=== PATIENT | female | born 1995 | race Caucasian/White ===

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

== ENCOUNTER 2017-03-15 23:12 | Emergency (ER) | payer MEDICAID ==
[~2017-03-15 23:12] MED LIST changes: -IBUP-232 PO; -SENN1TAB PO
--- NOTE | 2017-03-16 00:14 | PD ---
HPI Chief Complaint Contractions Date Seen: Mar 15, 2017 Time Seen: 23:50 Travel History International Travel<30 Days: No Contact w/Intl Traveler<30Days: No Known Affected Area: No History of Present Illness HPI 21-year-old 3 para 1 at 38-6/7 weeks' gestation who comes today with possible contractions. She denies any bleeding, leakage of fluid or decreased movement. Para: 1 : 3 Miscarriage: 1 History Past Medical History Narrative Medical Hypothyroidism Obstetric History Obstetric History 1 term vaginal delivery Uncomplicated course Past Surgical History Narrative Surgical None Family History Family History: Negative Social History Alcohol Use: No Tobacco Use: No Substance Abuse: No Allergies-Medications (Allergen,Severity, Reaction): Coded Allergies: No Known Allergies (Unverified , 01/28/14) Home Meds Reported Medications Norethindrone (Contraceptive) (Orth[facility]) Tab1 Tab PO DAILY #1 PACK START 5 WEEKS POST 01/31/14 Ibuprofen 800 Mg [id number] Mg PO Q8 PRN (PAIN) #30 TAB 01/31/14 Docusate Sodium (Colace)100 Mg [id number] Mg PO BID #30 CAP 01/31/14 Vit W/ Ferrous Fumara ( Vitamin 27-0.8 mg)1 Tab Tab 01/28/14 Review of Systems Except as stated in HPI: all other systems reviewed are Neg Physical Exam Narrative GENERAL: Well-nourished, well-developed patient. SKIN: Warm and dry. HEAD: Normocephalic and atraumatic. EYES: No scleral icterus. No injection or drainage. ENT: No nasal drainage noted. Mucous membranes pink. Airway patent. NECK: Supple, trachea midline. No JVD. CARDIOVASCULAR: Regular rate and rhythm without murmurs, gallops, or rubs. RESPIRATORY: Breath sounds equal bilaterally. No accessory muscle use. ABDOMEN/GI: Abdomen soft, non-tender, bowel sounds present, no rebound, no guarding Gravid to [-] weeks size Fundal Height: [-] GENITOURINARY: External Genitalia: intact and normal in appearance BUS glands: [-] Cervix: [-] Dilatation: [2-] Effacement: [-80] Station: [-] Presentation: [-] Membranes: [intact] Uterine Contractions: [-Rare] FHT's: Category: [1-] Baseline: [-] Reactive: [-Yes] Variability: [-] Decels: [-] EXTREMITIES: No cyanosis or edema. BACK: Nontender without obvious deformity. No CVA tenderness. NEUROLOGICAL: Awake and alert. Motor and sensory grossly within normal limits. Five out of 5 muscle strength in all muscle groups. Normal speech. Data Data Vital Signs Reviewed: Yes MDM Medical Record Reviewed: Yes Narrative Course / MDM Assessment: 38-6/7 week gestation without evidence of labor Plan: Discharge home with labor precautions. Diagnosis Diagnosis: Primary Impression: with 38 completed weeks gestation Additional Impression: Irregular uterine contractions Disposition: DISCHARGE HOME Condition: Good Wilfrido Ram MD Mar 16, 2017 00:14
== END 2017-03-16 00:20 | disposition home or self-care (01) ==
LOC: HOBED 23:12
DX: O62.2 Other uterine inertia (principal); Z3A.38 38 weeks gestation of pregnancy
CPT/HCPCS: 59025; 84112

== ENCOUNTER 2017-03-20 14:27 | Inpatient (IN) | payer MEDICAID ==
[2017-03-20] VITALS (52 sets, daily range): BP systolic 100–137; BP diastolic 39–86; PULSE 57–140; RESP 16–18; TEMP 98–98.4
[~2017-03-20] VITALS: Ht 149.9 cm; Wt 69.4 kg
[2017-03-20] MEDS ORDERED: LACTATED RINGER'S 1000 ML INJ 1,000 ML IV SCH (14:59)
[2017-03-20] MEDS ORDERED: LACTATED RINGER'S 1000 ML INJ 1,000 ML IV PRN (14:59)
[2017-03-20] MEDS ORDERED: MINERAL OIL 10 ML VIAL TOPICAL PRN (15:00)
[2017-03-20] MEDS ORDERED: CITRIC ACID-SODIUM CITRATE LIQ 30 ML UDC PO SCH (15:00)
[2017-03-20] MEDS ORDERED: LIDOCAINE HCL 1% 50 ML VIAL INFIL PRN (15:00)
[2017-03-20] MEDS ORDERED: LIDOCAINE HCL 1% 50 ML VIAL I-DERMAL PRN (15:00)
[2017-03-20] MEDS ORDERED: ONDANSETRON HCL 4 MG/2 ML VIAL IV PRN (15:00)
[2017-03-20] MEDS ORDERED: OXYTOCIN 30 UNITS-500ML PREMIX 500 ML IV ONE (15:00)
[2017-03-20] MEDS ORDERED: SODIUM CHLORID 0.9% 500 ML INJ 500 ML IV PRN (15:00)
--- NOTE | 2017-03-20 15:03 | PD ---
HPI Chief Complaint Contractions and vaginal bleeding Date Seen: March 20, 2017 Travel History International Travel<30 Days: No Contact w/Intl Traveler<30Days: No Known Affected Area: No History of Present Illness HPI 21-year-old who is at 39 weeks gestation comes in complaining of contractions for the past 2 days and vaginal bleeding this morning. Patient was seen at [facility] yesterday cervix was 2 cm at the at that time and was sent home due to no additional change. Group B strep was negative at 36 weeks. Patient had vaginal bleeding that filled up a couple of small pads and she's been having normal movement. Para: 1 : 3 Miscarriage: 1 History Past Medical History Narrative Medical Hypothyroidism Obstetric History Obstetric History Spontaneous vaginal delivery Miscarriage Past Surgical History Surgical History: No Previous Surgery Family History Family History: Negative Social History Alcohol Use: No Tobacco Use: No Substance Abuse: No Allergies-Medications (Allergen,Severity, Reaction): Coded Allergies: No Known Allergies (Unverified , 01/28/14) Home Meds Reported Medications Norethindrone (Contraceptive) (Ortho [facility]) Tab1 Tab PO DAILY #1 PACK START 5 WEEKS POST 01/31/14 Ibuprofen 800 Mg [id number] Mg PO Q8 PRN (PAIN) #30 TAB 01/31/14 Docusate Sodium (Colace)100 Mg [id number] Mg PO BID #30 CAP 01/31/14 Vit W/ Ferrous Fumara ( Vitamin 27-0.8 mg)1 Tab Tab 01/28/14 Review of Systems Except as stated in HPI: all other systems reviewed are Neg Physical Exam Narrative GENERAL: Well-nourished, well-developed patient. SKIN: Warm and dry. HEAD: Normocephalic and atraumatic. EYES: No scleral icterus. No injection or drainage. ENT: No nasal drainage noted. Mucous membranes pink. Airway patent. NECK: Supple, trachea midline. No JVD. CARDIOVASCULAR: Regular rate and rhythm without murmurs, gallops, or rubs. RESPIRATORY: Breath sounds equal bilaterally. No accessory muscle use. BREASTS: Bilateral exam showed no masses , no retractions, no nipple discharge. ABDOMEN/GI: Abdomen soft, non-tender, bowel sounds present, no rebound, no guarding Gravid to [-38] weeks size Fundal Height: [-] GENITOURINARY: External Genitalia: intact and normal in appearance BUS glands: [Normal-] Cervix: [Mid position] Dilatation: [4 Effacement: [--80] Station: [-2] Presentation: [-Vertex] Membranes: [intact] Uterine Contractions: [-Irritability] FHT's: Category: [-1] Baseline: [140-] Reactive: [-Moderate] Variability: [-Moderate] Decels: [Absent-] EXTREMITIES: No cyanosis or edema. BACK: Nontender without obvious deformity. No CVA tenderness. NEUROLOGICAL: Awake and alert. Motor and sensory grossly within normal limits. Five out of 5 muscle strength in all muscle groups. Normal speech. Data Data Vital Signs Reviewed: Yes [facility] Medical Record Reviewed: No Plan 21-year-old who is at term gestation here and labor. History of vaginal bleeding this morning but there is a category 1 heart rate tracing, will admit. Diagnosis Diagnosis: Primary Impression: Irregular uterine contractions Additional Impressions: 39 weeks gestation of Hypothyroidism affecting in third trimester Jenn Bertrand MD March 20, 2017 15:03
[2017-03-20] MEDS ORDERED: SODIUM CHLOR 0.9% 1000 ML INJ 1,000 ML IV PRN (15:19)
[2017-03-20] MEDS ORDERED: DIPHTH/TETANUS/ACEL PERTUSSIS (BOOSTER) 0.5 ML VIAL/PFS IM ONE (16:00)
[2017-03-20] MEDS ORDERED: MEASLES, MUMPS, RUBELLA VACCINE 0.5 ML VIAL SQ ONE (16:00)
[2017-03-20 16:11] LABS: BACTERIA, URINE RARE /hpf; BLOOD, URINE MOD (NEG); COMMENT (UR) CULTURE INDICATED; CULTURE IF INDICATED CULTURE INDICATED; GLUCOSE,URINE NEG (NEG); KETONE, URINE NEG (NEG); MUCUS URINE FEW /lpf (OCC); NITRITE,URINE NEG (NEG); PH, URINE 6.5 (5.0-8.5); SQUAMOUS EPITHELIAL CELL URINE 6 /hpf (0-5); URINE COLOR LIGHT-YELLOW (YELLW/STRAW)
--- NOTE | 2017-03-20 16:25 | PD.LABORPN ---
Subjective Subjective Pt lying in bed comfortable. Feeling contractions occasionally. AROM attempted once unsuccessfully, then performed successfully. Clear fluid. Objective Vital Signs Vital Signs Date Time Temp Pulse Resp B/P Pulse Ox O2 Delivery O2 Flow Rate FiO2 03/20/17 16:00 17 03/20/17 15:40 74 118/76 03/20/17 15:00 98.1 16 03/20/17 14:45 103 104/66 Objective Pelvic Exam: Dilatation:4 Effacement: 80 Station: -2 Presentation: vertex Membranes: ruptured with clear fluids Uterine Contractions: q5 minutes FHT's: Category: 1 Baseline: 130 Reactive: yes Variability: moderate Decels: none Assessment/Plan Assessment and Plan 21-year-old admitted for labor GBS negative Category 1 FHT Cervical exam: 4/80/-2 - AROM at 1615, clear fluids - Continue expectant management - Continuous FHT - Plan for vaginal delivery Carrillo Michelle MD R1 March 20, 2017 16:24
[2017-03-20 16:40] LABS: BASOPHIL % 0.5 % (0.0-2.0); EOSINOPHIL # 0.2 TH/MM3 (0-0.4); EOSINOPHIL % 1.9 % (0.0-4.0); LYMPH % 25.8 % (9.0-44.0); MEAN CELL VOLUME 74.1 FL (80.0-100.0); MEAN CORPUSCULAR HEMOGLOBIN 24.1 PG (27.0-34.0); MEAN CORPUSCULAR HGB CONC 32.6 % (32.0-36.0); MONO % 8.4 % (0.0-8.0); NEUT % 63.4 % (16.0-70.0); PLATELET COUNT 163 TH/MM3 (150-450); RED BLOOD COUNT 3.64 MIL/MM3 (4.00-5.30); RED CELL DISTRIBUTION WIDTH 17.8 % (11.6-17.2); WHITE BLOOD COUNT 7.9 TH/MM3 (4.0-11.0)
[2017-03-20 16:45] LABS: HEMO FLAGS AUTO DIFF
[2017-03-20] MEDS ORDERED: OXYTOCIN 30 UNITS-500ML PREMIX 500 ML IV SCH (17:45)
[2017-03-20 17:46] LABS: PLATELET ESTIMATE SMEAR NORMAL (NORMAL); PLATELET MORPHOLOGY ENLARGED (NORMAL); SCAN/DIFF AUTO DIFF CONFIRMED
[2017-03-20] MEDS ORDERED: fentaNYL 2MCG-BUPIV 0.125% INJ 100 ML ONE (17:54)
[2017-03-20] MEDS ORDERED: BUPIVACAINE HCL PF 0.25% 10 ML VIAL ONE (18:33)
[2017-03-20] MEDS ORDERED: ePHEDrine/NS 25 MG/5 ML SYR ONE (18:35)
--- NOTE | 2017-03-20 21:51 | PD.OB.DELI ---
Delivery Date: March 20, 2017 Anesthesia: Epidural Episiotomy: None Vaginal Delivery: Normal Presentation: Occiput anterior Nuchal Cord: x1, Other (cut at the perineum) Delayed cord clamping (45 sec): Yes Infant: Female One Minute : 4 Five Minute : 8 Weight: 3360gms, 7#6oz Placenta: Spontaneous delivery, Intact, 3 vessel cord Laceration: Perineal laceration (laceration of external urethra repaired with two interrupted 4.0 vicryl sutures), 1 deg Repair: Vicryl interrupted Jenn Bertrand MD March 20, 2017 21:51
[2017-03-20] MEDS ORDERED: oxyCODONE/ACETAMINOPHEN 5 MG/325 MG TAB PO PRN (22:00)
[2017-03-20] MEDS ORDERED: ZOLPIDEM TARTRATE 5 MG TAB PO PRN (22:00)
[2017-03-20] MEDS ORDERED: ACETAMINOPHEN 325 MG TAB PO PRN (22:00)
[2017-03-20] MEDS ORDERED: BENZOCAINE 20% TOPICAL SPRAY 60 ML CAN TOPICAL PRN (22:00)
[2017-03-20] MEDS ORDERED: SODIUM CHLORIDE 0.9% FLUSH 10 ML FLUSH IV FLUSH PRN (22:00)
[2017-03-20] MEDS ORDERED: ONDANSETRON ODT 4 MG TAB PO PRN (22:00)
[2017-03-20] MEDS ORDERED: ALUMINUM/MAGNESIUM/SIMETH 30 ML CUP PO PRN (22:00)
[2017-03-21] MEDS: oxyCODONE/ACETAMINOPHEN 5 MG/325 MG TAB PO PRN ×5 (00:26→20:33)
[2017-03-21] MEDS: IBUPROFEN 600 MG TAB PO PRN ×4 (00:26→21:41)
[2017-03-21] MEDS: WITCH HAZEL 50%/GLYCERIN 12.5% 40 PAD JAR TOPICAL PRN (00:27)
[2017-03-21] MEDS: DOCUSATE SODIUM 50 MG/SENNA 8.6 MG TAB PO PRN ×2 (06:40→20:33)
[2017-03-21 08:00] VITALS: BP 115/74; PULSE 55; RESP 16; TEMP 97.7
--- NOTE | 2017-03-21 08:54 | HHI.OB ---
Subjective Post Day: 1 Remarks Ms. Botello is a 21 yo who is PPD1 from 03/20/2017 at 2129. Patient states that she is doing well at this time; she is ambulating normally and reports mild vaginal bleeding. Patient reports mild abdominal pain which is controlled with medications. Regarding patient's history of hypothyroidism, she does not report any mood or energy changes. She does not report any dysuria. Patient breast-feeding at this time. (Oneil Gilmore MD R2) Objective Vitals/I&O Vital Signs Date Time Temp Pulse Resp B/P Pulse Ox O2 Delivery O2 Flow Rate FiO2 03/21/17 08:00 97.7 55 16 115/74 03/20/17 23:42 18 03/20/17 23:00 18 03/20/17 22:45 18 03/20/17 22:35 64 117/59 03/20/17 22:30 18 03/20/17 22:15 18 03/20/17 22:01 86 110/47 03/20/17 21:49 98.3 18 03/20/17 21:46 82 127/61 03/20/17 21:45 18 03/20/17 21:25 76 03/20/17 21:20 85 03/20/17 21:15 118 03/20/17 21:15 96 109/76 03/20/17 21:10 87 03/20/17 21:05 86 03/20/17 21:00 70 111/63 03/20/17 21:00 67 03/20/17 20:56 98.4 03/20/17 20:56 18 03/20/17 20:45 68 18 105/86 03/20/17 20:31 68 129/77 03/20/17 20:30 18 03/20/17 20:30 78 03/20/17 20:25 72 03/20/17 20:20 71 03/20/17 20:15 69 03/20/17 20:15 66 116/58 03/20/17 20:00 64 109/59 03/20/17 20:00 61 03/20/17 19:56 18 03/20/17 19:55 73 03/20/17 19:50 70 03/20/17 19:45 66 108/76 03/20/17 19:45 99 03/20/17 19:41 140 106/39 03/20/17 19:40 62 03/20/17 19:36 65 117/65 03/20/17 19:35 65 03/20/17 19:31 58 126/68 03/20/17 19:30 67 03/20/17 19:26 98.0 18 03/20/17 19:25 85 119/57 03/20/17 19:25 58 03/20/17 19:20 76 108/62 03/20/17 19:20 87 03/20/17 19:15 60 123/63 03/20/17 19:15 57 03/20/17 19:00 17 03/20/17 18:59 124/55 03/20/17 18:59 61 03/20/17 18:55 76 03/20/17 18:55 63 03/20/17 18:55 112/52 03/20/17 18:51 122/65 03/20/17 18:51 72 03/20/17 18:50 67 03/20/17 18:50 67 03/20/17 18:50 137/77 03/20/17 18:45 74 03/20/17 18:45 69 03/20/17 18:45 124/74 03/20/17 18:41 86 100/77 03/20/17 18:40 75 18 03/20/17 18:39 75 134/72 03/20/17 17:12 17 03/20/17 17:12 78 121/69 03/20/17 16:00 17 03/20/17 15:40 74 118/76 03/20/17 15:00 98.1 16 03/20/17 14:45 103 104/66 Objective Remarks GENERAL: Well-nourished, well-developed patient. CARDIOVASCULAR: Regular rate and rhythm without murmurs. RESPIRATORY: CTAB, normal rate ABDOMEN/GI: Abdomen soft, non-tender. Fundus: Firm, non-tender at umbilicus. GENITOURINARY: Light to moderate bleeding. EXTREMITIES: No cyanosis or edema, non-tender, without signs of DVT. Medications and IVs Current Medications Medications (Trade) Dose Ordered Sig/Haley Route Start Time Stop Time Status Last Admin (NS Flush) 2 ml BID IV FLUSH 03/21/17 09:00 (NS Flush) 2 ml UNSCH PRN IV FLUSH 03/20/17 22:00 (Tylenol) 650 mg Q4H PRN PO 03/20/17 22:00 (Motrin) 600 mg Q6H PRN PO 03/20/17 22:00 03/21/17 06:40 (Percocet 5-325 Mg) 1 tab Q4H PRN PO 03/20/17 22:00 03/21/17 06:40 (Percocet 5-325 Mg) 2 tab Q4H PRN PO 03/20/17 22:00 (Americaine 20% Top Spr) 1 spray Q4H PRN TOPICAL 03/20/17 22:00 03/21/17 00:27 (Tucks Pads) 1 applic QID PRN TOPICAL 03/20/17 22:00 03/21/17 00:27 (Lucrecia-Colace) 2 tab Q12H PRN PO 03/20/17 22:00 03/21/17 06:40 (Ambien) 5 mg HS PRN PO 03/20/17 22:00 (Mag-Al Plus Susp Liq) 15 ml Q8H PRN PO 03/20/17 22:00 (Zofran Odt) 4 mg Q6H PRN PO 03/20/17 22:00 (Ferrous Sulfate) 325 mg BID PO 03/21/17 09:00 (Synthroid) 125 mcg DAILY@0600 PO 03/22/17 06:00 (Oneil Gilmore MD R2) Assessment/Plan Problem List: (1) Hypothyroidism (2) care and examination Assessment and Plan 21 yo who is PPD1 from 03/20/2017 at 2129 Routine care Continue to monitor vital signs, vaginal bleeding Encourage ambulation Encourage breast feeding When necessary Motrin/Percocet Stool softener as needed Hypothyroidism Impression: We'll controlled per patient Continue 125 g of levothyroxine daily Anemia Impression: Hemoglobin 8.8 We'll increase patient's home iron supplementation from 65 to 325 mg ferrous sulfate twice a day (Oneil Gilmore MD R2) Collaborating MD Comments Agree with above management plan. (Jenn Bertrand MD) Oneil Gilmore MD R2 March 21, 2017 08:53 Jenn Bertrand MD March 22, 2017 11:17
[2017-03-21] MEDS ORDERED: SODIUM CHLORIDE 0.9% FLUSH 10 ML FLUSH IV FLUSH SCH (09:00)
[2017-03-21] MEDS: FERROUS SULFATE 325 MG (65 MG ELEMENTAL IRON) TAB PO SCH ×2 (09:17→21:40)
[2017-03-22] MEDS: IBUPROFEN 600 MG TAB PO PRN (05:30)
[2017-03-22] MEDS ORDERED: LEVOTHYROXINE SODIUM 125 MCG TAB PO SCH (06:00)
[2017-03-22] MEDS ORDERED: IBUP-232 PO (07:23)
[2017-03-22] MEDS ORDERED: SENN1TAB PO (07:23)
[2017-03-22 07:39] VITALS: BP 119/82; PULSE 60; RESP 12; TEMP 98.2
[2017-03-22] MEDS: FERROUS SULFATE 325 MG (65 MG ELEMENTAL IRON) TAB PO SCH (08:24)
--- NOTE | 2017-03-22 08:35 | HHI.DCPOC ---
Discharge Care Plan Diagnosis: (1) care and examination Report Symptoms to Your Doctor -Temperate above 100.5 degrees -Redness, of incision or excessive or foul smelling drainage -Unusual pain or calf pain -Increased vaginal bleeding -Painful or difficulty urinating -Feelings of extreme sadness or anxiety after 2 weeks Goals to Promote Your Health * To prevent worsening of your condition and complications * To maintain your health at the optimal level Directions to Meet Your Goals Take your medications as prescribed Follow your dietary instruction Follow activity as directed Ensure plenty of rest for recovery Drink fluids for hydration Keep your appointments as scheduled Take your immunizations and boosters as scheduled If your symptoms worsen call your PCP, if no PCP go to Urgent Care Center or Emergency Room Smoking is Dangerous to Your Health. Avoid second hand smoke Call the 24-hour crisis hotline for domestic abuse at Carrillo Michelle MD R1 March 22, 2017 08:35
--- NOTE | 2017-03-22 09:01 | HHI.OB ---
Subjective Post Day: 2 Remarks day #2. AFVSS overnight. Pain minimal. Decreased lochia. Denies dysuria. No breast tenderness. Appetite good. No nausea or vomiting. Endorses flatus. Endorses bowel movement. Ambulating well. Denies calf pain, shortness of breath, or cough. Otherwise, she is doing well this morning and has no other complaints. Objective Vitals/I&O Vital Signs Date Time Temp Pulse Resp B/P Pulse Ox O2 Delivery O2 Flow Rate FiO2 03/22/17 07:39 98.2 60 12 119/82 Objective Remarks GENERAL: Well-nourished, well-developed patient. CARDIOVASCULAR: Regular rate and rhythm without murmurs. RESPIRATORY: CTAB, normal rate ABDOMEN/GI: Abdomen soft, non-tender. Fundus: Firm, non-tender at umbilicus. GENITOURINARY: Light to moderate bleeding. EXTREMITIES: No cyanosis or edema, non-tender, without signs of DVT. Medications and IVs Current Medications Medications (Trade) Dose Ordered Sig/Haley Route Start Time Stop Time Status Last Admin (NS Flush) 2 ml BID IV FLUSH 03/21/17 09:00 (NS Flush) 2 ml UNSCH PRN IV FLUSH 03/20/17 22:00 (Tylenol) 650 mg Q4H PRN PO 03/20/17 22:00 (Motrin) 600 mg Q6H PRN PO 03/20/17 22:00 03/22/17 05:30 (Percocet 5-325 Mg) 1 tab Q4H PRN PO 03/20/17 22:00 03/21/17 20:33 (Percocet 5-325 Mg) 2 tab Q4H PRN PO 03/20/17 22:00 (Americaine 20% Top Spr) 1 spray Q4H PRN TOPICAL 03/20/17 22:00 03/21/17 00:27 (Tucks Pads) 1 applic QID PRN TOPICAL 03/20/17 22:00 03/21/17 00:27 (Lucrecia-Colace) 2 tab Q12H PRN PO 03/20/17 22:00 03/21/17 20:33 (Ambien) 5 mg HS PRN PO 03/20/17 22:00 (Mag-Al Plus Susp Liq) 15 ml Q8H PRN PO 03/20/17 22:00 (Zofran Odt) 4 mg Q6H PRN PO 03/20/17 22:00 (Ferrous Sulfate) 325 mg BID PO 03/21/17 09:00 03/22/17 08:24 (Synthroid) 125 mcg DAILY@0600 PO 03/22/17 06:00 03/22/17 08:24 Assessment/Plan Problem List: (1) Hypothyroidism (2) care and examination Assessment and Plan 21 yo who is PPD2 from 03/20/2017 at 2129 Routine care Continue to monitor vital signs, vaginal bleeding Encourage ambulation Encourage breast feeding When necessary Motrin/Percocet Stool softener as needed Discharge today Hypothyroidism Impression: We'll controlled per patient Continue 125 g of levothyroxine daily Anemia Impression: Hemoglobin 8.8 Continue 325 mg ferrous sulfate twice a day Carrillo Michelle MD R1 March 22, 2017 09:01
[2017-03-22] MEDS: WITCH HAZEL 50%/GLYCERIN 12.5% 40 PAD JAR TOPICAL PRN (12:02)
== END 2017-03-22 13:47 | disposition home or self-care (01) | DRG 775 ==
LOC: HOBED 14:27 → H2EA 15:18 → H1EA 23:49
PROVIDERS: ADMIT Obstetrics & Gynecology Obstetrics; ATTEND Obstetrics & Gynecology Obstetrics
PROC: 10E0XZZ Delivery of Products of Conception, External Approach (ICD-10-PCS; principal; 2017-03-20)
PROC: 0UQMXZZ Repair Vulva, External Approach (ICD-10-PCS; 2017-03-20)
PROC: 10907ZC Drainage of Amniotic Fluid, Therapeutic from Products of Conception, Via Natural or Artificial Opening (ICD-10-PCS; 2017-03-20)
PROC: 00HU33Z Insertion of Infusion Device into Spinal Canal, Percutaneous Approach (ICD-10-PCS; 2017-03-20)
PROC: 3E0R3CZ (ICD-10-PCS; 2017-03-20)
DX: O99.284 Endocrine, nutritional and metabolic diseases complicating childbirth (principal); E03.9 Hypothyroidism, unspecified; Z37.0 Single live birth; Z3A.39 39 weeks gestation of pregnancy; O70.9 Perineal laceration during delivery, unspecified; O71.82 Other specified trauma to perineum and vulva; O69.81X0 Labor and delivery complicated by cord around neck, without compression, not applicable or unspecified
CPT/HCPCS: 81001; 85025; 87086; 90715; 99285; J2590; J7120

== ENCOUNTER 2017-11-24 19:31 | Emergency (ER) | payer MEDICAID ==
[~2017-11-24] VITALS: Ht 149.9 cm; Wt 67.0 kg
[~2017-11-24 19:31] MED LIST changes: -COLA100C PO; +IBUP-232 PO; -IBUP800T23 PO; -ORTH0.35 PO; -PREN1TAB30; +SENN1TAB PO
[2017-11-24 19:33] VITALS: BP 133/77; PULSE 79; RESP 16; TEMP 98.1; O2SAT 98
[2017-11-24] MEDS ORDERED: LEVO125T4 PO (19:54)
--- NOTE | 2017-11-24 20:01 | PD ---
HPI Chief Complaint: ENT Complaint Time Seen by Provider: 19:55 Travel History International Travel<30 days: No Contact w/Intl Traveler<30days: No Traveled to known affect area: No History of Present Illness HPI The patient is a 22 year old female who presents to the [facility] emergency department with a history of noticing a cyst on her thyroid had greatly enlarged over the last week. She reports that it feels like she has difficulty swallowing related to it. She reports additionally over the last 3 days should she has had cold symptoms, however she denies having any sore throat. She reports that the cyst itself is slightly tender to the touch. She reports that she was first diagnosed with a thyroid cyst approximately 9 months ago while she was . She was told that she would need to have it aspirated, however she never followed up with a primary care physician to do this. She does have insurance, however she is unsure who her primary care physician is. The patient reports that she has been diagnosed with hypothyroid disorder. She last had her thyroid hormone level checked while she was . She is currently on Synthroid 125 g daily. She reports that over the last month she has had a 10 pound weight gain. She also reports having sensitivity to heat and is constantly feeling hot over the last month. She denies having any nausea, vomiting, or diarrhea. She denies having any difficulties with constipation. The patient's cold symptoms include postnasal drip. She reports that today she began to have an occasional cough. I review of systems otherwise, she denies having any known fevers, chest pain, shortness of breath, abdominal pain, urinary symptoms, or neurologic symptoms. LMP: 6 months ago, however she has a Nexplanon implant and prior to that she was on Depo-Provera. [facility] Past Medical History Narrative Medical The patient's past medical history is significant for having a thyroid cyst, history of hypothyroid disorder. Diminished Hearing: No Immunizations Current: Yes Tetanus Vaccination: < 5 Years Influenza Vaccination: No ?: Unknown Past Surgical History Narrative Surgical The patient's past surgical history is reportedly none. Social History Alcohol Use: No Tobacco Use: No Substance Use: No Allergies-Medications (Allergen,Severity, Reaction): Coded Allergies: No Known Allergies (Unverified Adverse Reaction, Unknown, 11/24/17) Reported Meds & Prescriptions Reported Meds & Active Scripts Active Levothyroxine (Levothyroxine Sodium) 137 Mcg Tab 137 Mcg PO DAILY Review of Systems Except as stated in HPI: all other systems reviewed are Neg General / Constitutional: Positive: Weight Gain, No: Fever Eyes: No: Visual changes HENT: Positive: Congestion, Neck Pain, No: Headaches, Rhinorrhea, Neck Stiffness Cardiovascular: No: Chest Pain or Discomfort, Dyspnea on exertion Respiratory: Positive: Cough, No: Shortness of Breath Gastrointestinal: No: Nausea, Diarrhea, Abdominal Pain, Constipation Genitourinary: No: Dysuria Musculoskeletal: No: Pain Skin: No Rash Neurologic: No: Weakness, Focal Abnormalities, Change in Mentation, Slurred Speech, Sensory Disturbance Psychiatric: No: Depression Endocrine: Positive: Heat Intolerance, No: Polydipsia Hematologic/Lymphatic: No: Easy Bruising Physical Exam Narrative General: The patient is a well-developed well-nourished female in no acute distress. Head and Neck exam: Head is normocephalic atraumatic. Eyes: EOMI, pupils are equal round and reactive to light. Nose: Midline septum with pink mucous membranes Mouth: Dentition unremarkable. Moist mucus membranes. Posterior oropharynx is not erythematous. No tonsillar hypertrophy. Uvula midline. Airway patent. Neck: No palpable lymphadenopathy. No nuchal rigidity. On palpation of the patient's thyroid, thyroid masses palpable along the left side of the thyroid gland. The patient is able to easily swallow and has no shortness of breath associated with this. Cardiovascular: Regular rate and rhythm without murmurs, gallops, or rubs. Lungs: Clear to auscultation bilaterally. No wheezes, rhonchi, or rales. Abdomen: Soft, without tenderness to palpation in all 4 quadrants of the abdomen. No guarding, rebound, or rigidity. Normal bowel sounds are audible. No tenderness on palpation of McBurney's point. Extremities: No clubbing, cyanosis, or edema. 2+ pulses in all 4 extremities. No calf tenderness on palpation. Back: No costovertebral angle tenderness to palpation. Neurologic Exam: Grossly nonfocal. Skin Exam: No rash noted. Intact skin that is warm and dry. Data Data Last Documented VS Vital Signs Date Time Temp Pulse Resp B/P (MAP) Pulse Ox O2 Delivery O2 Flow Rate FiO2 11/24/17 19:33 98.1 79 16 133/77 (95) 98 Room Air Orders Orders Complete Blood Count With Diff (11/24/17 20:05) Comprehensive Metabolic Panel (11/24/17 20:05) Thyroid Stimulating Hormone (11/24/17 20:05) Iv Access Insert/Monitor (11/24/17 20:05) Ecg Monitoring (11/24/17 20:05) Oximetry (11/24/17 20:05) Ed Urine Pregnancytest Poc (11/24/17 20:05) Us Thyroid (11/24/17 ) Labs Laboratory Tests Test 11/24/17 20:19 White Blood Count 9.6 TH/MM3 Red Blood Count 4.28 MIL/MM3 Hemoglobin 13.0 GM/DL Hematocrit 38.2 % Mean Corpuscular Volume 89.2 FL Mean Corpuscular Hemoglobin 30.5 PG Mean Corpuscular Hemoglobin Concent 34.1 % Red Cell Distribution Width 12.8 % Platelet Count 255 TH/MM3 Mean Platelet Volume 9.2 FL Neutrophils (%) (Auto) 51.9 % Lymphocytes (%) (Auto) 37.2 % Monocytes (%) (Auto) 7.5 % Eosinophils (%) (Auto) 2.4 % Basophils (%) (Auto) 1.0 % Neutrophils # (Auto) 5.0 TH/MM3 Lymphocytes # (Auto) 3.6 TH/MM3 Monocytes # (Auto) 0.7 TH/MM3 Eosinophils # (Auto) 0.2 TH/MM3 Basophils # (Auto) 0.1 TH/MM3 CBC Comment DIFF FINAL Differential Comment Blood Urea Nitrogen 14 MG/DL Creatinine 0.79 MG/DL Random Glucose 81 MG/DL Total Protein 7.9 GM/DL Albumin 4.1 GM/DL Calcium Level 9.1 MG/DL Alkaline Phosphatase 83 U/L Aspartate Amino Transf (AST/SGOT) 25 U/L Alanine Aminotransferase (ALT/SGPT) 20 U/L Total Bilirubin 0.2 MG/DL Sodium Level 141 MEQ/L Potassium Level 3.8 MEQ/L Chloride Level 109 MEQ/L Carbon Dioxide Level 24.2 MEQ/L Anion Gap 8 MEQ/L Estimat Glomerular Filtration Rate 93 ML/MIN Thyroid Stimulating Hormone 3rd Gen 14.900 uIU/ML MDM Medical Decision Making Medical Screen Exam Complete: Yes Emergency Medical Condition: Yes Medical Record Reviewed: Yes Interpretation(s) Last Impressions Thyroid Ultrasound 11/24/17 0000 Signed Impressions: Service Date/Time: Friday, November 24, 2017 20:36 - CONCLUSION: 2.6 cm complex cystic mass in the mid left thyroid lobe. Eduard Adams MD Differential Diagnosis Thyroid cyst, versus thyroid nodule, versus hypothyroid disorder, versus hyperthyroid Narrative Course During the course of the patients emergency department visit, the patients history, examination, and differential diagnosis were reviewed with the patient. The patient was placed on a skilled helper with oximetry and frequent blood pressure monitoring. The patient had IV access obtained and blood work sent for analysis. An ultrasound of the patient's cyst was ordered. The patients laboratory studies were reviewed and remarkable for a CBC that is within normal limits, CMP is remarkable for chloride of 109, TSH is elevated at 14.900 Radiology studies were reviewed and remarkable for ultrasound of the thyroid reveals a 2.6 cm complex cystic mass in the mid left thyroid lobe. The patient is instructed regarding the importance of following up with a primary care physician. The patient has a known history of hypothyroid disorder. She is on levothyroxine 125 g daily. The patient's dose will be increased to 137 g. The patient was given an outpatient lab slip to obtain a repeat TSH in 6-8 weeks to reassess for improvement. The patient was instructed to follow-up with her primary care physician for referral for additional testing, aspiration of her thyroid cyst. The patient is resting comfortably and feels better, is alert and in no distress. The patients results and examination findings were discussed with the patient. The repeat examination is unremarkable and benign. The history, exam, diagnostic testing, and current condition do not suggest any significant pathology to warrant further testing, continued ED treatment, admission, or surgical evaluation at this point. The vital signs have been stable. The patient does not have uncontrollable pain, intractable vomiting, or other significant symptoms. The patient's condition is stable and appropriate for discharge. The patient will pursue further outpatient evaluation with a primary care physician or other designated or consulting physician as indicated in the discharge instructions. The patient expressed understanding and was agreeable with this plan. Diagnosis Primary Impression: Left thyroid nodule Additional Impression: Hypothyroidism Qualified Codes: E03.9 - Hypothyroidism, unspecified Referrals: Primary Care Physician 1 day Patient Instructions: General Instructions, Hypothyroidism (ED), Thyroid Nodules (ED) Additional Instructions: The patient is instructed regarding the importance of following up with a primary care physician as soon as possible for additional testing of her 2.6 cm complex cystic mass in the mid left thyroid lobe. The patient is given a copy of her ultrasound findings discussed further with her primary care physician. Med/Other Pt SpecificInfo: Prescription(s) given, Existing Med Changed (the patient is instructed to discontinue the levothyroxine and 125 g as this will need to be increased to 137 g.) Scripts Levothyroxine (Levothyroxine) 137 Mcg Tab 137 MCG PO DAILY for Thyroid, #30 TAB 0 Refills Prov: Taisha Rey MD 11/24/17 Disposition: 01 DISCHARGE HOME Condition: Stable Taisha Rey MD Nov 24, 2017 20:01
[2017-11-24 20:33] LABS: BASOPHIL # 0.1 TH/MM3 (0-0.2); EOSINOPHIL # 0.2 TH/MM3 (0-0.4); EOSINOPHIL % 2.4 % (0.0-4.0); HEMATOCRIT 38.2 % (35.0-46.0); LYMPH % 37.2 % (9.0-44.0); LYMPHOCYTE # 3.6 TH/MM3 (1.0-4.8); MEAN CELL VOLUME 89.2 FL (80.0-100.0); MEAN CORPUSCULAR HEMOGLOBIN 30.5 PG (27.0-34.0); MEAN CORPUSCULAR HGB CONC 34.1 % (32.0-36.0); MEAN PLATELET VOLUME 9.2 FL (7.0-11.0); MONO % 7.5 % (0.0-8.0); MONOCYTE # 0.7 TH/MM3 (0-0.9); NEUT % 51.9 % (16.0-70.0); PLATELET COUNT 255 TH/MM3 (150-450); RED BLOOD COUNT 4.28 MIL/MM3 (4.00-5.30); RED CELL DISTRIBUTION WIDTH 12.8 % (11.6-17.2); WHITE BLOOD COUNT 9.6 TH/MM3 (4.0-11.0)
[2017-11-24 20:53] LABS: ALT (GPT) 20 U/L (9-42)
[2017-11-24 21:03] LABS: ALKALINE PHOSPHATASE 83 U/L (45-117); TOTAL BILIRUBIN ADULT 0.2 MG/DL (0.2-1.0); TOTAL PROTEIN 7.9 GM/DL (6.4-8.2)
[2017-11-24] MEDS ORDERED: LEVO137T2 PO (21:04)
[2017-11-24 21:09] LABS: ALBUMIN 4.1 GM/DL (3.4-5.0); AST (GOT) 25 U/L (16-38); BICARBONATE 24.2 MEQ/L (21.0-32.0); BLOOD UREA NITROGEN 14 MG/DL (7-18); CALCIUM 9.1 MG/DL (8.5-10.1); CHLORIDE 109 MEQ/L (98-107); CREATININE 0.79 MG/DL (0.50-1.00); GLOMERULAR FILTRATION RATE 93 ML/MIN (>89); GLUCOSE,RANDOM 81 MG/DL (74-106); SODIUM (NA) 141 MEQ/L (136-145)
--- NOTE | 2017-11-24 21:09 | RADRPT ---
EXAM DATE/TIME: 11/24/2017 20:36 [facility] COMPARISON: No previous studies available for comparison. INDICATIONS : Palpable thyroid nodule. MEDICAL HISTORY : Thyroid nodule. SURGICAL HISTORY : None. ENCOUNTER: Initial ACUITY: 7 - 11 months PAIN SCORE: 3/10 LOCATION: Bilateral neck MEASUREMENTS: RIGHT LOBE: 3.0 x 0.7 x 0.6 cm LEFT LOBE: 3.5 x 2.1 x 2.2 cm FINDINGS: RIGHT LOBE: Homogeneous echotexture without nodules or cysts. Vascularity is within normal limits. LEFT LOBE: A complex cystic nodule is identified in left lobe 2.6 x 1.7 x 2.3 cm in size. There is peripheral hy pervascularity. ISTHMUS: Normal in size without focal abnormality. CONCLUSION: 2.6 cm complex cystic mass in the mid left thyroid lobe. Eduard Adams MD on November 24, 2017 at 21:05 Board Certified Radiologist. This report was verified electronically.
[2017-11-24 21:40] VITALS: BP 121/73; PULSE 66; RESP 14; O2SAT 100
[2017-11-24 21:49] VITALS: O2SAT 100
== END 2017-11-24 21:50 | disposition home or self-care (01) ==
LOC: NEPE 19:31
DX: E04.1 Nontoxic single thyroid nodule (principal); E03.9 Hypothyroidism, unspecified; Z79.899 Other long term (current) drug therapy
CPT/HCPCS: 76536; 80053; 84443; 84703; 85025